=== PATIENT | male | born 1975 | race Caucasian/White ===

== ENCOUNTER 2025-02-15 13:14 | Outpatient (NON) | payer BC, SELFPAY ==
--- NOTE | 2025-02-15 14:51 | S_PTH ---
PATIENT: Adin Barajas LOC: [facility] #:[id number] AGE/SX: 49/M ROOM: RE02/15/[address]: Jailene Pete MD : 1975 BED: DIS: 02/15/2025 SPEC #: [id number] RECD: 02/16/25 07:51 STATUS: CHRISTIAN REQ #: [id number] MARISOL: 02/15/25 14:[address]: Jailene Pete DEPT: [facility] Surgical RECD BY: Zuleika Murphy Tissues: A - Cyst Procedures: Hematoxylin and Eosin Stain Gross and Microscopic Level 4 Comments: @ Originally on account #[id number] Req #[id number]
--- OUTSIDE RECORDS SUMMARY | 2026-01-01 15:36 | XMS_ITS | Clinical Summary ---
Author Organization [facility] Address [address] [place] [id number] Care Team Providers Care Medical Laboratory Specialist Name Role Phone Unavailable Primary Care Provider Unavailabl e Allergies No known active allergies Medications albuterol sulfate HFA (PROAIR HFA) 108 (90 Base) MCG/ACT inhalerIndicatio ns:Acute bronchitis, unspecified organism,Acute sinusitis, recurrence not specified, unspecified location 2 inhalations q 4 hours prn. 1 Inhaler 9 Active predniSONE 10 mg tabletIndication s:Acute bronchitis, unspecified organism,Acute sinusitis, recurrence not specified, unspecified location See directions below. 21 tablet 9 Active fluticasone propionate 50 MCG/ACT nasal sprayIndications :Acute bronchitis, unspecified organism,Acute sinusitis, recurrence not specified, unspecified location 2 sprays in each nostril once daily until symptoms resolve. 16 g 9 Active Active Problems Problem Noted Date Diagnosed Date History of 2019 novel coronavirus disease (COVID -19) 08/26/2020 Fall, accidental 10/08/2017 Overweight 10/08/2017 Rib fracture 10/08/2017 Resolved Problems Problem Noted Date Diagnosed Date Resolved Date Encounter for preventive health examination 10/07/2017 05/31/2020 Encounters Date Type Department Care Team Description 10/17/2025 Scan HEALTH INFO SRVCS Scanned, Doc Med Group Image (SCAN) from Last 3 Months Social History Tobacco Use Types Packs/Day Years Used Date Smoking Tobacco: Never Smokeless Tobacco: Current Snuff Tobacco Cessation:Counseling Given: Yes Sex and Gender Information Value Date Recorded Sex Assigned at Not on file Legal Sex Male 8:53 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 Gender Identity Not on file Sexual Orientation Not on file Last Filed Vital Signs Vital Sign Reading Time Taken Comments Blood Pressure 128/80 11/30/2018 3:40 PM CDT Pulse 108 11/30/2018 3:40 PM CDT Temperature 36.7 C (98.1 F) 11/30/2018 3:40 PM CDT Respiratory Rate 10 11/30/2018 3:40 PM CDT Oxygen Saturation 95% 11/30/2018 3:40 PM CDT Inhaled Oxygen Concentration - - Weight 140.7 kg (310 lb 4 oz) 11/30/2018 3:40 PM CDT Height 188 cm (6' 2) 10/08/2017 8:02 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 Body Mass Index 39.83 10/08/2017 8:02 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 Plan of Treatment Health Maintenance Due Date Last Done Comments Annual Physical 1977 Hepatitis C 02/20/1992 DTaP, Tdap and Td Vaccines ( 1 - Tdap) 1993 Hepatitis B Vaccines (1 of 3 - 19+ 3-dose series) 1993 Colorectal Cancer Screening 2019 Pneumococcal Vaccine: 50+ Ye ars (1 of 1 - PCV) 02/20/2024 Zoster Vaccines (1 of 2) 02/20/2024 COVID-19 Vaccine (1 - 2024-2 6 season) 2025 PHQ-2 (Physician [place]) 09/20/2025 Hepatitis A Vaccines Aged Out No long er eligible based on patient's age to complete this topic Meningococcal B Vaccine Aged Out No l onger eligible based on patient's age to complete this topic Meningococcal Vaccine Aged Out No jonah wilfrido eligible based on patient's age to complete this topic RSV Immunizations Under 20 Months Aged Out No longer eligible based on patient's age to complete this topic Procedures Procedure Name Priority Date/Time Associated Diagnosis Comments IMAGE GENERIC 10/17/2025 from Last 3 Months Results * IMAGE GENERIC (10/17/2025) Anatomical Region Laterality Modality Other 10/17/2025 us Doc Med Group Scanned SCANNING Final Resu lt from Last 3 [place] [id number] [facility]
--- OUTSIDE RECORDS SUMMARY | 2026-01-01 15:36 | XMS_ITS | Clinical Summary ---
Author Organization [facility] Address [address] [place] [address] Care Team Providers Care Soil Surveyor Name Role Phone Unavailable Primary Care Provider Unavailabl e Source Comments [facility],non-owned Affiliates and Associated Physician Practices is amultiple site organization consisting of ambulatory clinics and hospital sitesin [place], [place], [place] and [place]. This disclosure is being madepursuant to the Care Everywhere program and may not contain all information available regarding this patient. Last updated 18.[facility] [place] Allergies No known active allergies Immunizations Immunization Administration Dates Next Due INFLUENZA VACCINE, QUADR. (F LUZONE; FLULAVAL; FLUARIX; AFLURIA QUADRIVALENT; 6MO+), 0.5 ML (IIV4) 06/26/2020 TDAP (7yrs+) 06/26/2020 Social History Tobacco Use Types Packs/Day Years Used Date Smoking Tobacco: Never Assessed Sex and Gender Information Value Date Recorded Sex Assigned at Not on file Legal Sex Male 11:52 AM CDT Gender Identity Not on file Sexual Orientation Not on file Plan of Treatment Health Maintenance Due Date Last Done Comments Colorectal Cancer Screening 1975 LIPID TESTING 1975 HIV SCREENING 1989 HEPATITIS C SCREENING 02/15/1992 HEPATITIS B VACCINE (1 of 3 - 19+ 3-dose series) 1993 PNEUMOCOCCAL VACCINE 50+ (1 of 1 - PCV) 02/20/2024 ZOSTER VACCINE (1 of 2) 02/20/2024 COVID-19 VACCINE (1 - 2024-2 6 season) 2025 DEPRESSION SCREENING 09/20/2025 INFLUENZA VACCINE (Season Ended) 2026 06/26/20 20 DTAP/TDAP/TD VACCINES (2 - T d or Tdap) 06/26/2030 06/26/2020 HIB VACCINE Aged Out No longer eligi ble based on patient's age to complete this topic HPV VACCINE Aged Out No longer eligi ble based on patient's age to complete this topic MENINGOCOCCAL (Group B) VACC INE SHARED DECISION-MAKING Aged Out No longer eligibl e based on patient's age to complete this topic MENINGOCOCCAL GROUPS A/C/Y/W VACCINE Aged Out No longer eligible b ased on patient's age to complete this topic ROTAVIRUS VACCINE Aged Out No longer eligible based on patient's age to complete this topic Insurance [facility] SELF PAY NO INSURANCE Member Subscriber Plan / Payer (Ef fective for All Dates) Name:Luis E Mckeon Member ID:Not on file Relation to Subscriber:Not on file Name:LUIS E MCKEON Subscriber ID:Not on file (Home) Address: [address] [place] [address] [place] [address] Payer ID:Not on file Group ID:Not on file Type:Self Pay Address: [place], [place]
--- OUTSIDE RECORDS SUMMARY | 2026-01-01 15:37 | XMS_ITS | Clinical Summary ---
Author Organization [facility] Address [address] [place] [id number] Care Team Providers Care Weeder Thinner Name Role Phone Unavailable Primary Care Provider Unavailabl e Social History Tobacco Use Types Packs/Day Years Used Date Smoking Tobacco: Never Assessed Sex and Gender Information Value Date Recorded Sex Assigned at Not on file Legal Sex Male 9:42 AM CDT Gender Identity Not on file Sexual Orientation Not on file Plan of Treatment Health Maintenance Due Date Last Done Comments Hepatitis C Virus (HCV) Screening 1975 Hepatitis B Immunization (1 of 3 - 19+ 3-dose series) 1993 Cologuard 2019 Colonoscopy 2019 Colorectal Cancer Screening 2019 Immunochemical Fecal Occult Blood 2019 Pneumococcal Immunization (50+ years) (1 of 1 - PCV) 02/20/2024 Zoster Immunization (1 of 2) 02/20/2024 SARS-COV-2 Immunization (1 - season) 2025 Influenza Immunization (Season Ended) 2026 06/26/2020, 06/21/2018, 06/29/2017, Additional history exists Respiratory Syncytial Virus (RSV) Immunization (Adult) (1 - 1-dose 75+ series) 2049 DTaP/Tdap/Td Immunization Discontinued 06/26/2020 TdaP Immunization Completed 06/26/2020 Human Papillomavirus (HPV) Immunization (No Doses Required) Completed Meningococcal Immunization (ACWY) Aged Out No longer eligible based on patient's age to complete this topic Rotavirus Immunization Aged Out No lo nger eligible based on patient's age to complete this topic
--- OUTSIDE RECORDS SUMMARY | 2026-01-01 15:37 | XMS_ITS | Clinical Summary ---
Author Organization [facility] [address] Address [address] [place] [phone] Phone Care Team Providers Care Housing Grant Analyst Name Role Phone No, Physician Primary Care Provider [phone] Allergies No known active allergies Medications fluticasone propionate (FLONASE) 50 mcg/actuation nasal sprayIndication s:Acute pansinusitis, recurrence not specified Administer 2 sprays into each nostril daily 1 each 5 Active Additional Information Patient not taking.Reported on 10/02/2025 methylPREDNISol one (MEDROL DOSEPACK) 4 mg Dosepack follow package directions 1 packet 6 Active Active Problems No known active problems Social History Tobacco Use Types Packs/Day Years Used Date Smoking Tobacco: Never Assessed Sex and Gender Information Value Date Recorded Sex Assigned at Not on file Legal Sex Male 10:12 AM VENEER DRIER Gender Identity Not on file Sexual Orientation Not on file Last Filed Vital Signs Vital Sign Reading Time Taken Comments Blood Pressure 142/80 02/22/2025 7:11 PM CDT Pulse 94 02/22/2025 7:11 PM CDT Temperature 36.5 C (97.7 F) 02/22/2025 7:11 PM CDT Respiratory Rate 24 02/22/2025 7:11 PM CDT Oxygen Saturation 97% 02/22/2025 7:11 PM CDT Inhaled Oxygen Concentration - - Weight 137.4 kg (303 lb) 02/22/2025 7:11 PM CDT Height - - Body Mass Index - - Plan of Treatment Health Maintenance Due Date Last Done Comments Colon Cancer Screening-Colonoscopy 1974 Depression Screening 1974 Hepatitis C Screening 1974 Prostate Cancer Screening-PSA 1974 Hepatitis B Screening 02/20/1992 Regular Well Visit/Exam 18-64 02/20/1992 Zoster Vaccine (1 of 2) 02/20/2024 Covid-19 Vaccine ( - 2024- season) 2025 09/21/2022, 07/21/2021, 11/01/2020, Additional history exists Influenza Vaccine (Season Ended) 2026 09/21/2022, 07/21/2021, 06/26/2020, Additional history exists DTaP/Tdap/Td Vaccine (3 - Td or Tdap) 04/03/2035 04/03/2025, 06/26/2020 Pneumococcal vaccine <65 Aged Out No longer eligible based on patient's age to complete this topic Insurance Care Teams Housing Grant Analyst Relationship Specialty Start Date End Date No, Physician PCP - General 08/26/24
== END 2025-02-15 13:15 | disposition home or self-care (01) ==
PROVIDERS: PCP Family Medicine; Visit Provider Plastic Surgery
DX: L72.11 Pilar cyst (principal)
CPT/HCPCS: 88305